=== PATIENT | female | born 1960 | race Caucasian/White ===

== ENCOUNTER 2025-02-27 14:10 | Emergency (ER) | payer SELFPAY ==
[~2025-02-27] VITALS: Ht 162.6 cm; Wt 54.4 kg
[2025-02-27 14:10] VITALS: BP 129/89
[2025-02-27 14:47] LABS: PLATELET COUNT (AUTO) 309 K/uL (179-408); RED BLOOD CELL COUNT(AUTO) 4.65 MIL/uL (3.63-4.92); RED CELL DISTRIBUTION WIDTH 13.7 % (12.3-17.7); WHITE BLOOD COUNT (AUTO) 6.1 K/uL (3.8-11.8)
[2025-02-27 14:56] LABS: CREATININE 0.7 mg/dL (0.6-1.3); SODIUM SERUM 135 mmol/L (136-145); UREA NITROGEN, BLOOD 10 mg/dL (7-18)
[2025-02-27 15:02] LABS: ASPARTATE AMINOTRANSFERASE 30 U/L (15-37); TOTAL PROTEIN, SERUM 7.9 g/dL (6.4-8.2)
[2025-02-27 16:36] VITALS: BP 122/89; TEMP 208.2; O2SAT 97
== END 2025-02-27 16:00 | disposition home or self-care (01) ==
LOC: ER 14:10
DX: R40.4 Transient alteration of awareness (principal); R53.1 Weakness
CPT/HCPCS: 84484; 85025; A4606; A4663